=== PATIENT | male | born 1945 | race Caucasian/White ===

== ENCOUNTER → 2017-11-25 11:06 | Outpatient (CLI) | payer MEDICARE, OTHER ==
[2016-01-17 13:20] VITALS: BMI 31.9
[~2017-11-25 11:06] MED LIST: ELAVIL25 MG PO; FUROSEMIDE20 MG PO; LASIX 40 M40 MG/5 ML PO; LIPITOR40 MG PO; LIPITOR80 MG PO; LISINOPRIL10 MG PO; MORPHINE SULFAT30 M4 PO; NITROSTAT0.4 MG SL; PLAVIX75 MG PO; ULTRAM50 MG PO; VALIUM10 MG PO; ZESTRIL20 MG PO
== END | disposition home or self-care (01) ==
LOC: D.CT 11:06
DX: I67.9 Cerebrovascular disease, unspecified (principal)

== ENCOUNTER 2018-01-27 12:50 | Inpatient (IN) | payer MEDICARE, OTHER ==
[~2018-01-27] VITALS: Ht 172.7 cm; Wt 88.2 kg
--- NOTE | ~2018-01-27 | MORECARE ---
CASE MANAGEMENT DISCHARGE SUMMARY PATIENT: SARATH JESUS UNIT: [id number] ADM DATE: 01/27/18 AGE: 72 : 45 SEX: M ROOM/BED: D.2130 AUTHOR: ABIMAEL BONNER PHYSICIAN: REFERRING PHYSICIAN: CLAUDNIE WARNER MD DATE OF SERVICE: 02/02/18 Discharge Plan Patient Name: SARATH JESUS Facility: [facility]:[place] : 1945 Planned Disposition: Home Anticipated Discharge Date: 01/31/18 Discharge Date: 01/31/2018 Expected LOS: 4 Initial Reviewer: [id number] Initial Review Date: 02/02/2018 Generated: 02/02/18 2:01 pm Patient Name: SARATH JESUS Page [id number] at 1301 All edits/amendments must be made on the electronic document DICTATION DATE: 02/02/18 1301 UNITIZER: HONEY 02/02/18 1301 RPT#: [id number] DC DATE:01/31/18 STATUS: DIS IN [facility] [address] [place] [address] END OF REPORT
[2018-01-27 13:39] LABS: BASOPHILS 0.2 % (0-2); EOSINOPHILS 0.1 % (0-7); HEMATOCRIT 32.2 % (42.0-54.0); HEMOGLOBIN 10.3 g/dL (13.5-17.5); IMMATURE GRANULOCYTES 0.4 % (0-5); LYMPHOCYTES 49.7 % (15-50); MCH 22.7 pg (26.0-34.0); MCV 71.1 fL (80.0-100.0); MEAN PLATELET VOLUME 10.7 fL (7.4-10.4); MONOCYTES 6.2 % (2-11); NEUTROPHILS 43.4 % (40-80); RBC 4.53 10x6/uL (4.20-6.10); RDW 18.2 % (11.5-14.5); WBC 16.5 10x3/uL (4.8-10.8)
[2018-01-27 13:41] LABS: PLATELET COUNT 218 10x3/uL (130-400)
[2018-01-27 13:43] LABS: ALBUMIN 2.8 g/dL (3.4-5.0); ANION GAP 19.9 mmol/L (8-16); BILIRUBIN - TOTAL 0.28 mg/dL (0.2-1.3); CALCIUM 8.1 mg/dL (8.5-10.1); CARBON DIOXIDE 27.1 mmol/L (21.0-32.0); PROTEIN - SERUM 7.7 g/dL (6.4-8.2)
[2018-01-27 14:12] LABS: THYROID STIMULATING HORMONE 0.48 uIU/mL (0.36-3.74); TROPONIN-I 0.019 ng/mL (0.000-0.060)
[2018-01-27] MEDS ORDERED: ASPIRIN81 MG PO (17:48)
[2018-01-27] MEDS ORDERED: LASIX20 MG PO (17:49)
[2018-01-27] MEDS ORDERED: CRESTOR40 MG PO (17:51)
[2018-01-27] MEDS ORDERED: OXYCONTIN10 MG PO (17:54)
[2018-01-27] MEDS ORDERED: PLAVIX75 MG PO (17:55)
[2018-01-27 18:03] VITALS: BP 95/44; BMI 30.4
[2018-01-27 18:40] LABS: APPEARANCE CLEAR (CLEAR); BILIRUBIN NEGATIVE (NEGATIVE); COLOR YELLOW (YELLOW); GLUCOSE NEGATIVE (NEGATIVE); KETONE NEGATIVE (NEGATIVE); NITRITE NEGATIVE (NEGATIVE); PROTEIN TRACE mg/dL (NEGATIVE); PROTEIN - URINE 119.7 mg/dL (0.0-11.9); UROBILINOGEN NORMAL (NORMAL)
[2018-01-27 18:43] LABS: CREATININE - URINE 265.5 mg/dL (30-125); PRO/CRE RATIO URINE 0.5 mg/g
[2018-01-27 21:10] VITALS: BP 91/47
[2018-01-28] VITALS: BP 107/42
[2018-01-28 04:54] LABS: HEMATOCRIT 31.3 % (42.0-54.0); HEMOGLOBIN 9.8 g/dL (13.5-17.5); MCH 22.4 pg (26.0-34.0); MCHC 31.3 g/dL (31.0-37.0); MCV 71.6 fL (80.0-100.0); MEAN PLATELET VOLUME 10.4 fL (7.4-10.4); PLATELET COUNT 235 10x3/uL (130-400); RBC 4.37 10x6/uL (4.20-6.10); RDW 18.3 % (11.5-14.5); WBC 16.7 10x3/uL (4.8-10.8)
[2018-01-28 05:14] LABS: ANION GAP 17.7 mmol/L (8-16); CALCIUM 7.9 mg/dL (8.5-10.1); CARBON DIOXIDE 26.2 mmol/L (21.0-32.0); CREATININE - SERUM 5.3 mg/dL (0.6-1.3); POTASSIUM - SERUM 3.9 mmol/L (3.5-5.1)
[2018-01-28 05:28] LABS: LYMPHOCYTES 62 % (15-50); MONOCYTES 4 % (2-11); NEUTROPHILS 31 % (40-80); PLATELET ESTIMATE NORMAL
[2018-01-28 05:44] VITALS: BP 108/45
[2018-01-28 08:33] VITALS: BP 114/40
[2018-01-28 13:11] VITALS: BMI 30.1
[2018-01-28 13:45] VITALS: BP 108/56
[2018-01-28 16:10] VITALS: BP 101/52
[2018-01-28 18:27] VITALS: Ht 172.7 cm; Wt 88.2 kg
[2018-01-28 20:00] VITALS: BP 124/40
[2018-01-29] VITALS: BP 109/43
[2018-01-29 04:00] VITALS: BP 101/52
[2018-01-29 05:58] LABS: BASOPHILS 0.1 % (0-2); EOSINOPHILS 0.7 % (0-7); HEMATOCRIT 30.2 % (42.0-54.0); HEMOGLOBIN 9.2 g/dL (13.5-17.5); IMMATURE GRANULOCYTES 0.3 % (0-5); LYMPHOCYTES 52.3 % (15-50); MCH 22.2 pg (26.0-34.0); MCHC 30.5 g/dL (31.0-37.0); MCV 72.8 fL (80.0-100.0); MEAN PLATELET VOLUME 10.5 fL (7.4-10.4); MONOCYTES 10.9 % (2-11); NEUTROPHILS 35.7 % (40-80); PLATELET COUNT 273 10x3/uL (130-400); RBC 4.15 10x6/uL (4.20-6.10); RDW 18.6 % (11.5-14.5)
[2018-01-29 06:01] LABS: WBC 10.1 10x3/uL (4.8-10.8)
[2018-01-29 06:06] LABS: ANION GAP 14.6 mmol/L (8-16); CALCIUM 7.8 mg/dL (8.5-10.1); CARBON DIOXIDE 28.6 mmol/L (21.0-32.0); POTASSIUM - SERUM 4.2 mmol/L (3.5-5.1)
[2018-01-29 08:12] VITALS: BP 101/40
[2018-01-29 18:33] VITALS: BP 96/36
[2018-01-29 20:00] VITALS: BP 101/36
[2018-01-30] VITALS (7 sets, daily range): BP systolic 115–157; BP diastolic 43–84
[2018-01-30 05:57] LABS: BASOPHILS 0.2 % (0-2); HEMATOCRIT 30.6 % (42.0-54.0); HEMOGLOBIN 9.3 g/dL (13.5-17.5); IMMATURE GRANULOCYTES 0.2 % (0-5); LYMPHOCYTES 48.7 % (15-50); MCH 22.2 pg (26.0-34.0); MCHC 30.4 g/dL (31.0-37.0); MCV 73.2 fL (80.0-100.0); MEAN PLATELET VOLUME 10.2 fL (7.4-10.4); MONOCYTES 12.5 % (2-11); NEUTROPHILS 37.4 % (40-80); PLATELET COUNT 281 10x3/uL (130-400); RBC 4.18 10x6/uL (4.20-6.10); RDW 18.6 % (11.5-14.5); WBC 8.8 10x3/uL (4.8-10.8)
[2018-01-30 06:25] LABS: ANION GAP 11.3 mmol/L (8-16); CALCIUM 8.1 mg/dL (8.5-10.1); POTASSIUM - SERUM 4.3 mmol/L (3.5-5.1)
[2018-01-30 06:29] LABS: CREATININE - SERUM 1.8 mg/dL (0.6-1.3)
[2018-01-31 04:00] VITALS: BP 173/55
[2018-01-31 07:05] LABS: BASOPHILS 0.1 % (0-2); EOSINOPHILS 1.3 % (0-7); HEMATOCRIT 31.5 % (42.0-54.0); HEMOGLOBIN 9.6 g/dL (13.5-17.5); IMMATURE GRANULOCYTES 0.3 % (0-5); MCH 22.6 pg (26.0-34.0); MCHC 30.5 g/dL (31.0-37.0); MCV 74.3 fL (80.0-100.0); MEAN PLATELET VOLUME 9.6 fL (7.4-10.4); MONOCYTES 10.7 % (2-11); NEUTROPHILS 34.6 % (40-80); PLATELET COUNT 281 10x3/uL (130-400); RBC 4.24 10x6/uL (4.20-6.10); RDW 18.9 % (11.5-14.5); WBC 9.6 10x3/uL (4.8-10.8)
[2018-01-31 07:14] LABS: ANION GAP 7.6 mmol/L (8-16); CALCIUM 9.6 mg/dL (8.5-10.1); CARBON DIOXIDE 33.3 mmol/L (21.0-32.0); POTASSIUM - SERUM 3.9 mmol/L (3.5-5.1)
[2018-01-31 07:15] LABS: CREATININE - SERUM 1.3 mg/dL (0.6-1.3)
[2018-01-31 07:29] VITALS: BP 123/50
[2018-01-31 11:07] VITALS: BP 115/53
== END 2018-01-31 14:57 | disposition home or self-care (01) | DRG 683 ==
LOC: D.ER 12:50 → D.M2 15:27 → D.EDHOLD 15:27 → D.M2 16:27
PROVIDERS: Family Medicine; Internal Medicine Nephrology
DX: N17.9 Acute kidney failure, unspecified (principal); I13.0 Hypertensive heart and chronic kidney disease with heart failure and stage 1 through stage 4 chronic kidney disease, or unspecified chronic kidney disease; I11.0 Hypertensive heart disease with heart failure; I50.9 Heart failure, unspecified; J43.9 Emphysema, unspecified; Z87.891 Personal history of nicotine dependence; N18.9 Chronic kidney disease, unspecified

== ENCOUNTER → 2019-01-14 09:55 | Outpatient (CLI) | payer MEDICARE, OTHER ==
[2018-01-28 18:27] VITALS: BMI 30.4
[~2019-01-14 09:55] MED LIST changes: +ASPIRIN81 MG PO; +CRESTOR40 MG PO; +LASIX20 MG PO; +OXYCONTIN10 MG PO
--- NOTE | 2019-01-19 08:49 | EC ---
PATIENT:SARATH JESUS DATE OF SERVICE: 01/14/19 SEX: M MEDICAL RECORD: [id number] DATE OF : 45 LOCATION:D.[facility] AGE OF PATIENT: 73 ADMISSION DATE: 01/14/19 REFERRING PHYSICIAN: INTERPRETING PHYSICIAN: STEPHEN LAURA MD ECHOCARDIOGRAM REPORT ECHO CHARGES 4 ECHO COMPLETE Date: 01/14/19 CLINICAL DIAGNOSIS: HTN HX PVD,MR/TR/ ECHOCARDIOGRAPHIC MEASUREMENTS (adult normal given) AC root (d.<3.7cm) 3.6 cm LV Septum d (<1.2 cm> 1.2 cm Valve Excursion 1.1 cm LV Septum (systole) 1.7 cm Left Atria (s.<4.0cm> 3.6 cm LVPW d(<1.2cm) 1.5 cm RV (d.<2.3cm) 4.9 cm LVPW (sytole) 1.7 cm LV diastole(<5.6CM) 5.5 cm MV E-F(>70mm/sec) cm LV systole 3.6 cm LVOT Diameter 2.0 cm MV exc.(>10mm) 1.5 cm Est.ejection fraction (50-75%) % DOPPLER: LVIT cm/sec A 99.0 cm/sec E 89.0 cm/sec LA cm/sec RVSP 18 mmHg LVOT 133 cm/sec AOP1/2T m/s Asc. Ao 233 cm/sec RVOT 89 cm/sec RA cm/sec PA cm/sec AV Gradient Peak 21.73mmHg AV Mean 12.56mmHg AV Area 1.7 cm MV Gradient Peak 7.06 mmHg MV Mean 2.00 mmHg MV Area cm COMMENTS: Calculation Clerk: 2 DELILAH HEATON Arts [employer] Craft[employer] Teacher: 3 Dr. [place] TAPE# PACS Pericardial Effusion N DATE OF SERVICE: Adequate 2D echo, color flow imaging, spectral Doppler, and M-Mode. Borderline LVH. LV internal dimension is normal. Wall motion is normal. EF is greater than or equal to 55%. Aortic valve is tricuspid. No evidence of stenosis on Doppler interrogation. Left atrium is normal at 3.6 cm. Mitral valve shows no prolapse. Trace MR. Right-sided chambers grossly normal. Trace TR. ECHOCARDIOGRAM REPORT [id number] SARATH JESUS TRANSINT:[id number] Voice Confirmation ID: [id number] DOCUMENT ID: [id number] STEPHEN LAURA MD at 0849 CC: [id number] DICTATION DATE: 01/16/19 1033 SPLITTER TENDER: 01/16/19 1147 DEP CLI 01/14/19 [place] [id number] [place] [id number]
== END | disposition home or self-care (01) ==
LOC: D.HCCECHO 09:55
PROVIDERS: ATTEND Internal Medicine Interventional Cardiology
DX: I10 Essential (primary) hypertension (principal)